=== PATIENT | female | born 1950 | race Caucasian/White ===

== ENCOUNTER 2016-07-12 07:00 | Day surgery (SDC) | payer MEDICARE, OTHER ==
--- NOTE | ~2016-07-12 | EGD ---
EGD REPORT [address] [place] [address] NAME: JOSE RHODES : [birth year] STATUS : REG [facility]#: [id number] AGE: 65 ADM/REG DATE : 07/12/16 MR#: [id number] REPORT SERV DATE: 07/12/16 DICTATED BY: COCO WISE DATE: 07/12/16 REPORT STATUS : Draft TRANSCRIBED BY: [employer] DATE: 07/12/16 [facility] Center Patient Name: Jose Rhodes Date of : 1950 Attending MD: COCO WISE MD Procedure Date No Time: 07/12/2016 Procedure: Upper GI endoscopy Indications: Epigastric abdominal pain Referring MD: Yoan Putnam Medicines: as per anesthesia Complications: No immediate complications. Procedure: Pre-Anesthesia Assessment: - ASA Grade Assessment: II - A patient with mild systemic disease. After obtaining informed consent, the endoscope was passed under direct vision. Throughout the procedure, the patient's blood pressure, pulse, and oxygen saturations were monitored continuously. The GIF [id number] was introduced through the mouth, and advanced to the third part of duodenum. The upper GI endoscopy was accomplished without difficulty. The patient tolerated the procedure. Findings: The examined esophagus was normal. The entire examined stomach was normal. The cardia and gastric fundus were normal on retroflexion. The examined duodenum was normal. Impression: - Normal esophagus. - Normal stomach. - Normal examined duodenum. Recommendation: - Continue present medications. Procedure Code(s): --- Professional --- 14485, Esophagogastroduodenoscopy, flexible, transoral; diagnostic, including collection of specimen(s) by brushing or washing, when performed (separate procedure) Diagnosis Code(s): --- Professional --- R10.13, Epigastric pain CPT copyright 2013 [employer]. All rights reserved. EGD REPORT [address] [place] [address] NAME: JOSE RHODES : [birth year] [place]US : [place] [facility] [place] [id number] AGE: 65 ADM/REG DATE : 07/12/16 MR#: [id number] REPORT SERV DATE: 07/12/16 DICTATED BY: COCO WISE. DATE: 07/12/16 REPORT STATUS : Draft TRANSCRIBED BY: [employer] DATE: 07/12/16 The codes documented in this report are preliminary and upon firer powerhouse review may be revised to meet current compliance requirements. COCO WISE MD 07/12/2016 9:28 AM This report has been signed electronically. Number of Addenda: 0 Note Initiated On: 07/12/2016 9:06 AM Scope Withdrawal Time 0 hours 0 minutes 0 seconds [facility] [place] [address]
--- NOTE | ~2016-07-12 | EGD ---
EGD REPORT [facility] [address] [place] [address] NAME: JOSE RHODES : [birth year] STATUS : REG [facility]#: [id number] AGE: 65 ADM/REG DATE : 07/12/16 MR#: [id number] REPORT SERV DATE: 07/12/16 DICTATED BY: COCO WISE DATE: 07/12/16 REPORT STATUS : Draft TRANSCRIBED BY: [employer] DATE: 07/12/16 [facility] Center Patient Name: Jose Rhodes Date of : 1950 Attending MD: COCO WISE MD Procedure Date No Time: 07/12/2016 Procedure: Colonoscopy Indications: Colon cancer screening in patient at increased risk: Family history of colon polyps Referring MD: Yoan Putnam Medicines: as per anesthesia Complications: No immediate complications. Procedure: Pre-Anesthesia Assessment: - ASA Grade Assessment: II - A patient with mild systemic disease. After I obtained informed consent, the scope was passed under direct vision. Throughout the procedure, the patient's blood pressure, pulse, and oxygen saturations were monitored continuously. The PCF [id number] was introduced through the anus and advanced to the cecum, identified by appendiceal orifice and ileocecal valve. The colonoscopy was performed without difficulty. The patient tolerated the procedure. The quality of the bowel preparation was fair. Findings: The perianal and digital rectal examinations were normal. A few small and large-mouthed diverticula were found in the sigmoid colon. Internal hemorrhoids were found during endoscopy and were mild. Impression: - Diverticulosis in the sigmoid colon. - Internal hemorrhoids. Recommendation: - Repeat colonoscopy in 5 years for surveillance. Procedure Code(s): --- Professional --- 21198, Colonoscopy, flexible, proximal to splenic flexure; diagnostic, with or without collection of specimen(s) by brushing or washing, with or without colon decompression (separate procedure) Diagnosis Code(s): --- Professional --- K64.8, Other hemorrhoids K57.30, Diverticulosis of large intestine without EGD REPORT [facility] [address] [place] [address] NAME: JOSE RHODES : [birth year] STATUS : REG [facility] [place] PAT#: [id number] AGE: 65 ADM/REG DATE : 07/12/16 MR#: [id number] REPORT SERV DATE: 07/12/16 DICTATED BY: COCO WISE. DATE: 07/12/16 REPORT STATUS : Draft TRANSCRIBED BY: [employer] DATE: 07/12/16 perforation or abscess without bleeding Z12.11, Encounter for screening for malignant neoplasm of colon Z83.71, Family history of colonic polyps CPT copyright 2013 [employer]. All rights reserved. The codes documented in this report are preliminary and upon music teacher review may be revised to meet current compliance requirements. COCO WISE MD 07/12/2016 9:48 AM This report has been signed electronically. Number of Addenda: 0 Note Initiated On: 07/12/2016 9:27 AM Scope Withdrawal Time 0 hours 8 minutes 29 seconds [address] [facility] [place] [address]
[~2016-07-12 07:00] MED LIST: ALLEGRA180 PO; ASAB PO; ATV.5 PO; BENICAR HCT1 TAB PO; BUM1 PO; C5; C5 PO; CALTRA600D PO; CELEBREX2 PO; CENTRUM TAB1 TAB PO; CO Q-10100 MG PO; COQ10100 MG PO; COZ25 PO; FISH-EPA1000 MG PO; FLEX PO; GLUCCHONDR PO; GLUCOSAMINE; GLUCOSAMINEPO PO; LIPITOR20 PO; MOBIC7.5 PO; MULTIPLE VIT PO; NEUR300 PO; NITROSTAT0.4 MG SL; NORCO1 TA1 PO; PCET PO; PERCOCET 7.5/321 TAB PO; PERCOCET1 TA2 PO; PRILO PO; PRILOSEC40 MG PO; VIMOVO; VIVELLE SY0.1 MG/24 TOP; VOLT50 PO; ZIAC5 PO; ZOCOR20 PO; ZOFRAN ODT4 MG PO; ZYRTEC ALLGY10 MG PO; [UNRECOGNIZED DRUG - OTHER] OP
== END 2016-07-12 23:59 | disposition home or self-care (01) ==
LOC: DMU 07:00
PROVIDERS: Internal Medicine Gastroenterology
PROC: 0DJD8ZZ Inspection of Lower Intestinal Tract, Via Natural or Artificial Opening Endoscopic (ICD-10-PCS; principal; 2016-07-12 08:30)
PROC: 0DJ08ZZ Inspection of Upper Intestinal Tract, Via Natural or Artificial Opening Endoscopic (ICD-10-PCS; 2016-07-12 08:30)
DX: Z12.11 Encounter for screening for malignant neoplasm of colon (principal); K64.8 Other hemorrhoids; K57.30 Diverticulosis of large intestine without perforation or abscess without bleeding; G57.92 Unspecified mononeuropathy of left lower limb; I10 Essential (primary) hypertension; K21.9 Gastro-esophageal reflux disease without esophagitis; J45.909 Unspecified asthma, uncomplicated; K44.9 Diaphragmatic hernia without obstruction or gangrene; R10.13 Epigastric pain; F41.9 Anxiety disorder, unspecified; Z88.8 Allergy status to other drugs, medicaments and biological substances; Z90.710 Acquired absence of both cervix and uterus; Z83.71 Family history of colonic polyps; Z98.890 Other specified postprocedural states; Z96.653 Presence of artificial knee joint, bilateral; Z79.899 Other long term (current) drug therapy; Z79.891 Long term (current) use of opiate analgesic; Z79.82 Long term (current) use of aspirin
CPT/HCPCS: 94640